=== PATIENT | female | born 1955 | race Caucasian/White ===

== ENCOUNTER → 2016-11-12 | Outpatient (CLI) | payer OTHER ==
[2016-11-12 13:22] LABS: FREE T3 2.55 PG/ML (2.18-3.98); FREE T4 1.59 NG/DL (0.76-1.46)
[2016-11-14 03:52] LABS: THYROGLOBULN LESS THAN 0.1 ng/mL (())
== END ==
LOC: CLAB 12:17
PROVIDERS: ATTEND Internal Medicine
DX: C73 Malignant neoplasm of thyroid gland (principal)
CPT/HCPCS: 36415; 84432; 84439; 84443; 84481; 86800

== ENCOUNTER → 2016-12-17 | Outpatient (CLI) | payer OTHER ==
[2016-12-17 11:55] LABS: AUTOMATED NEUTROPHIL # 5.8 TH/MM3 (1.8-7.7); BASOPHIL # 0.1 TH/MM3 (0-0.2); BASOPHIL % 0.7 % (0.0-2.0); EOSINOPHIL # 0.2 TH/MM3 (0-0.4); HEMATOCRIT 43.7 % (35.0-46.0); HEMO FLAGS DIFF FINAL; LYMPH % 23.1 % (9.0-44.0); LYMPHOCYTE # 1.9 TH/MM3 (1.0-4.8); MEAN CELL VOLUME 86.4 FL (80.0-100.0); MEAN CORPUSCULAR HEMOGLOBIN 29.5 PG (27.0-34.0); MEAN CORPUSCULAR HGB CONC 34.2 % (32.0-36.0); MONO % 3.8 % (0.0-8.0); NEUT % 70.4 % (16.0-70.0); PLATELET COUNT 231 TH/MM3 (150-450); RED BLOOD COUNT 5.06 MIL/MM3 (4.00-5.30); RED CELL DISTRIBUTION WIDTH 12.8 % (11.6-17.2); WHITE BLOOD COUNT 8.2 TH/MM3 (4.0-11.0)
[2016-12-17 11:57] LABS: BACTERIA, URINE RARE /hpf; BLOOD, URINE MOD (NEG); GLUCOSE,URINE NEG (NEG); KETONE, URINE NEG (NEG); MUCUS URINE FEW /lpf (OCC); NITRITE,URINE NEG (NEG); PH, URINE 5.5 (5.0-8.5); SQUAMOUS EPITHELIAL CELL URINE 1 /hpf (0-5); TRANSITIONAL EPI CELLS, URINE <1 /hpf; URINE COLOR YELLOW (YELLW/STRAW)
[2016-12-17 12:18] LABS: ALT (GPT) 31 U/L (10-53); ANION GAP 9 MEQ/L (5-15); AST (GOT) 20 U/L (15-37); BICARBONATE 27.5 MEQ/L (21.0-32.0); BLOOD UREA NITROGEN 15 MG/DL (7-18); CHLORIDE 104 MEQ/L (98-107); GLOMERULAR FILTRATION RATE 70 ML/MIN (>89); GLUCOSE,FASTING 95 MG/DL (74-99); POTASSIUM 3.7 MEQ/L (3.5-5.1); SODIUM (NA) 140 MEQ/L (136-145)
[2016-12-17 12:42] LABS: ALKALINE PHOSPHATASE 71 U/L (45-117); HDL CHOLESTEROL 54.5 MG/DL (40.0-60.0); TOTAL BILIRUBIN ADULT 0.7 MG/DL (0.2-1.0)
[2016-12-17 12:43] LABS: FREE T3 2.91 PG/ML (2.18-3.98); FREE T4 1.85 NG/DL (0.76-1.46); LDL CHOLESTEROL 65 MG/DL (0-99)
[2016-12-17 16:36] LABS: HEMOGLOBIN A1a 1.2 %; HEMOGLOBIN A1b 1.1 %; HEMOGLOBIN Ao 84.1 %; HEMOGLOBIN F 1.5 %; HEMOGLOBIN LA1C 1.9 %; HEMOGLOBIN P3 3.8 %
== END ==
LOC: ELAB 08:40
PROVIDERS: ATTEND Internal Medicine
DX: Z00.00 Encounter for general adult medical examination without abnormal findings (principal); R31.9 Hematuria, unspecified; E78.5 Hyperlipidemia, unspecified; I10 Essential (primary) hypertension; E03.9 Hypothyroidism, unspecified; Z87.898 Personal history of other specified conditions
CPT/HCPCS: 36415; 80053; 80061; 81001; 82248; 82306; 82607; 82947; 83036; 84439; 84481; 85025; 87086

== ENCOUNTER → 2017-04-08 | Outpatient (CLI) | payer OTHER | LOC: CLAB 10:04 | PROVIDERS: ATTEND Internal Medicine | DX: E89.0 Postprocedural hypothyroidism (principal); C73 Malignant neoplasm of thyroid gland | CPT/HCPCS: 36415; 84443 ==